=== PATIENT | female | born 1990 ===

== ENCOUNTER 2024-01-12 09:28 | Outpatient (CLI) ==
[2024-01-12] VITALS (10 sets, daily range): BP systolic 104–141; BP diastolic 55–70; O2SAT 97–100
[~2024-01-12] VITALS: Ht 152.4 cm; Wt 68.2 kg
[2024-01-12] MEDS ORDERED: ACET-897 PO (09:46)
[2024-01-12] MEDS ORDERED: PRENTAB9 PO (09:52)
[2024-01-12] MEDS ORDERED: HOME MED LIST COMPLETE! XX SCH (09:55)
[2024-01-12 11:01] LABS: HEMATOCRIT 34.6 % (36.0-47.0); HEMOGLOBIN 11.8 g/dl (12.0-15.5); MEAN CORPUSCULAR HEMOGLOBIN 28.9 pg (27.0-33.0); MEAN CORPUSCULAR HGB CONC 34.1 g/dl (32.0-36.5); MEAN CORPUSCULAR VOLUME 84.6 fl (80.0-96.0); PLATELET COUNT, AUTOMATED 302 10^3/uL (150-450); RED BLOOD COUNT 4.09 10^6/uL (4.00-5.40)
[2024-01-12 11:21] LABS: ALKALINE PHOSPHATASE 70 U/L (46-116); ALT/SGPT 54 U/L (7.0-40); AST/SGOT 28 U/L (<34); BILIRUBIN,TOTAL 0.3 MG/DL (0.3-1.2); BLOOD UREA NITROGEN 7 MG/DL (9-23); CARBON DIOXIDE LEVEL 25 MMOL/L (20-31); CHLORIDE LEVEL 105 MMOL/L (98-107); CREATININE FOR GFR 0.45 MG/DL (0.55-1.30); GLOMERULAR FILTRATION RATE > 60.0 (>60); GLUCOSE, FASTING 105 MG/DL (60-100); POTASSIUM SERUM 3.6 MMOL/L (3.5-5.1); SODIUM LEVEL 138 MMOL/L (136-145); TOTAL PROTEIN 6.6 G/DL (5.7-8.2)
[2024-01-12] MEDS: LR 1,000 ML IV ONE (11:26)
[2024-01-12] MEDS: MORPHINE 10 MG/ML 1ML VIAL IV ONE ×2 (11:27→16:31)
[2024-01-12] MEDS: ONDANSETRON 4MG 2ML VIAL IV ONE (11:52)
[2024-01-12] MEDS: LR 1,000 ML IV SCH (12:47)
[2024-01-12] MEDS: KETOROLAC 30 MG/ML 1ML VIAL IV ONE (12:59)
[2024-01-12] MEDS ORDERED: CALCIUM CARBONATE 500 MG CHEW U/D PO PRN (17:40)
[2024-01-12] MEDS ORDERED: ONDANSETRON 4MG 2ML VIAL IV PRN (17:40)
[2024-01-12] MEDS ORDERED: KETOROLAC 30 MG/ML 1ML VIAL IV PRN (19:00)
[2024-01-12] MEDS: diphenhydrAMINE 50MG CAP PO PRN (21:40)
[2024-01-12] MEDS: ACETAMINOPHEN 500 MG TAB PO PRN (21:40)
[2024-01-13 02:00] VITALS: BP 99/52; O2SAT 98
[2024-01-13 06:00] VITALS: BP 103/51; O2SAT 98
[2024-01-13 07:23] LABS: HEMOGLOBIN 10.7 g/dl (12.0-15.5); MEAN CORPUSCULAR HEMOGLOBIN 28.9 pg (27.0-33.0); MEAN CORPUSCULAR HGB CONC 34.5 g/dl (32.0-36.5); MEAN CORPUSCULAR VOLUME 83.8 fl (80.0-96.0); PLATELET COUNT, AUTOMATED 273 10^3/uL (150-450); WHITE BLOOD COUNT 11.9 10^3/uL (4.0-10.0)
[2024-01-13 07:51] LABS: ALBUMIN 2.4 G/DL (3.2-5.2); ALKALINE PHOSPHATASE 58 U/L (46-116); ALT/SGPT 40 U/L (7.0-40); AST/SGOT 19 U/L (<34); BILIRUBIN,TOTAL 0.3 MG/DL (0.3-1.2); BLOOD UREA NITROGEN 8 MG/DL (9-23); CALCIUM LEVEL 8.5 MG/DL (8.5-10.1); CARBON DIOXIDE LEVEL 24 MMOL/L (20-31); CHLORIDE LEVEL 107 MMOL/L (98-107); CREATININE FOR GFR 0.47 MG/DL (0.55-1.30); GLOMERULAR FILTRATION RATE > 60.0 (>60); GLUCOSE, FASTING 87 MG/DL (60-100); POTASSIUM SERUM 3.5 MMOL/L (3.5-5.1); SODIUM LEVEL 139 MMOL/L (136-145); TOTAL PROTEIN 5.5 G/DL (5.7-8.2)
[2024-01-13 09:42] VITALS: BP 121/56; O2SAT 97
== END 2024-01-13 11:05 | disposition home or self-care (01) ==
LOC: M LDO 09:28 → M OBS 19:09 → M LDO 01-13 11:05
PROVIDERS: ATTEND Advanced Practice Midwife
DX: O26.892 Other specified pregnancy related conditions, second trimester (principal); R10.31 Right lower quadrant pain; M54.50 Low back pain, unspecified; Z3A.18 18 weeks gestation of pregnancy
CPT/HCPCS: 36415; 74176; 76775; 76811; 76857; 80053; 81001; 85027; 96360; 96361; 96374; 96375; 96376; G0463; J1885; J2405